=== PATIENT | female | born 1980 | race Caucasian/White ===

== ENCOUNTER 2016-10-18 09:45 | Outpatient (CLI) | payer BC, OTHER | END 2016-10-18 17:54 | disposition home or self-care (01) | LOC: SMA 09:45 | DX: N64.3 Galactorrhea not associated with childbirth (principal) | CPT/HCPCS: 76641; G0204 ==

== ENCOUNTER 2017-03-23 08:02 | Outpatient (CLI) | payer BC, OTHER | END 2017-03-23 19:59 | disposition home or self-care (01) | LOC: SUS 08:02 | DX: Z76.89 Persons encountering health services in other specified circumstances (principal); K59.00 Constipation, unspecified; E55.9 Vitamin D deficiency, unspecified; R10.11 Right upper quadrant pain; R35.0 Frequency of micturition | CPT/HCPCS: 76700-TC ==

== ENCOUNTER 2017-07-06 14:30 | Outpatient (CLI) | payer BC, OTHER | END 2017-07-06 20:17 | disposition home or self-care (01) | LOC: SRD 14:30 | DX: R07.9 Chest pain, unspecified (principal) | CPT/HCPCS: 71046-TC ==

== ENCOUNTER 2021-05-10 10:53 | Outpatient (CLI) | payer BC, OTHER | END 2021-05-10 20:51 | disposition home or self-care (01) | LOC: SUS 10:53 | PROVIDERS: ATTEND Obstetrics & Gynecology | DX: N83.291 Other ovarian cyst, right side (principal); R10.2 Pelvic and perineal pain | CPT/HCPCS: 76830-TC; 76857 ==